=== PATIENT | male | born 1940 | race Caucasian/White ===

== ENCOUNTER 2019-05-21 19:27 | Emergency (ER) | payer OTHER ==
[~2019-05-21] VITALS: Ht 175.3 cm; Wt 77.1 kg
[2019-05-21] MEDS ORDERED: ELIQUIS2.5 MG (19:37)
[2019-05-21] MEDS ORDERED: CARVEDILOL12.5 MG (19:38)
[2019-05-21] MEDS ORDERED: ALTACE2.5 MG (19:38)
== END 2019-05-21 21:50 | disposition home or self-care (01) ==
LOC: ER 19:27
DX: K80.80 Other cholelithiasis without obstruction (principal)